=== PATIENT | female | born 1980 | race Caucasian/White ===

== ENCOUNTER 2019-02-24 08:38 | Emergency (ER) | payer MEDICARE, MEDICAID ==
[~2019-02-24] VITALS: Ht 162.6 cm; Wt 97.0 kg
[~2019-02-24 08:38] MED LIST: CELE-193 PO; CYT5T PO; ESOM40CA PO; FLUT16SP26 BOTHNARES; LEVO175T52 PO; LORA-512 PO; VALA100027 PO
[2019-02-24 08:40] VITALS: BP 142/55
[2019-02-24] MEDS ORDERED: ibuprofen tablet 400 MG TABLET PO ONE (10:05)
== END 2019-02-24 10:48 | disposition home or self-care (01) ==
LOC: ER 08:38
DX: S92.511A Displaced fracture of proximal phalanx of right lesser toe(s), initial encounter for closed fracture (principal); E03.9 Hypothyroidism, unspecified; Z88.5 Allergy status to narcotic agent; Z79.899 Other long term (current) drug therapy; Z79.2 Long term (current) use of antibiotics; W22.8XXA Striking against or struck by other objects, initial encounter; Y93.01 Activity, walking, marching and hiking; Y92.89 Other specified places as the place of occurrence of the external cause; Y99.8 Other external cause status
CPT/HCPCS: 73630; 99283

== ENCOUNTER 2019-02-26 17:50 | Emergency (ER) | payer MEDICARE ==
[~2019-02-26] VITALS: Ht 162.6 cm; Wt 95.0 kg
[2019-02-26 17:54] VITALS: BP 147/92
== END 2019-02-26 18:41 | disposition home or self-care (01) ==
LOC: ER 17:51
DX: S92.354A Nondisplaced fracture of fifth metatarsal bone, right foot, initial encounter for closed fracture (principal); E03.9 Hypothyroidism, unspecified; Z88.5 Allergy status to narcotic agent; Z79.899 Other long term (current) drug therapy; X58.XXXA Exposure to other specified factors, initial encounter; Y93.89 Activity, other specified; Y92.89 Other specified places as the place of occurrence of the external cause; Y99.8 Other external cause status
CPT/HCPCS: 29515; 99284

== ENCOUNTER 2019-04-09 09:57 | Outpatient (CLI) | payer MEDICARE, MEDICAID | END 2019-04-09 23:59 | disposition home or self-care (01) | LOC: RAD 09:57 | PROVIDERS: ATTEND Family Medicine | DX: J18.9 Pneumonia, unspecified organism (principal) | CPT/HCPCS: 71046 ==

== ENCOUNTER 2019-05-08 09:59 | Emergency (ER) | payer MEDICARE, MEDICAID ==
[~2019-05-08] VITALS: Ht 162.6 cm; Wt 95.5 kg
[2019-05-08 10:10] VITALS: BP 138/82
[2019-05-08] MEDS ORDERED: ketorolac tromethamine 15mg/ml inj. IM ONE (11:40)
== END 2019-05-08 11:57 | disposition home or self-care (01) ==
LOC: ER 09:59
DX: S69.91XA Unspecified injury of right wrist, hand and finger(s), initial encounter (principal); G43.909 Migraine, unspecified, not intractable, without status migrainosus; E03.9 Hypothyroidism, unspecified; Z88.5 Allergy status to narcotic agent; Z79.899 Other long term (current) drug therapy; W23.0XXA Caught, crushed, jammed, or pinched between moving objects, initial encounter; Y93.89 Activity, other specified; Y92.89 Other specified places as the place of occurrence of the external cause; Y99.8 Other external cause status
CPT/HCPCS: 29125; 73130; 96372; 99283; J1885

== ENCOUNTER 2019-06-17 13:38 | Outpatient (CLI) | payer MEDICARE, MEDICAID | END 2019-06-17 23:59 | disposition home or self-care (01) | LOC: RAD 13:38 | PROVIDERS: ATTEND Family Medicine | DX: K21.9 Gastro-esophageal reflux disease without esophagitis (principal) | CPT/HCPCS: 74230 ==

== ENCOUNTER 2019-10-07 16:38 | Emergency (ER) | payer MEDICARE, MEDICAID ==
[~2019-10-07] VITALS: Ht 162.6 cm; Wt 95.5 kg
[~2019-10-07 16:38] MED LIST changes: -VALA100027 PO; +VALA100031 PO
[2019-10-07] MEDS ORDERED: mag hydrox/Alum hydrox/simeth 30ml oral suspension PO ONE (16:50)
[2019-10-07] MEDS ORDERED: LIDOcaine Viscous 15ml cup MM ONE (16:50)
[2019-10-07] MEDS ORDERED: sucralfate 1 gm tablet PO ONE (16:50)
[2019-10-07 17:07] LABS: BASOPHILS # (AUTO) 0.1 X10'3 (0-0.2); BASOPHILS % (AUTO) 0.8 % (0-1); EOSINOPHILS # (AUTO) 0.2 X10'3 (0-0.9); EOSINOPHILS % (AUTO) 1.8 % (0-6); HEMATOCRIT 39.7 % (35.0-45.0); HEMOGLOBIN 13.8 g/dl (12.0-16.0); LYMPHOCYTES % (AUTO) 34.8 % (21-51); MEAN CORPUSCULAR HEMOGLOBIN 32.4 PG (27.0-31.0); MEAN CORPUSCULAR HGB CONC 34.7 g/dL (33.0-36.5); MEAN CORPUSCULAR VOLUME 93.4 FL (78-98); MEAN PLATELET VOLUME 8.3 FL (7.4-10.4); MONOCYTES # (AUTO) 0.9 X10'3 (0-0.9); MONOCYTES % (AUTO) 7.7 % (2-12); NEUTROPHILS # (AUTO) 6.2 X10'3 (1.8-7.7); NEUTROPHILS % (AUTO) 54.9 % (42-75); PLATELET COUNT 314 X10'3 (140-440); RED BLOOD COUNT 4.25 X10'6 (4.20-5.60); RED CELL DISTRIBUTION WIDTH 12.9 % (11.5-14.5); WHITE BLOOD COUNT 11.4 X10'3 (4.5-11.0)
[2019-10-07 17:21] LABS: ALANINE AMINOTRANSFERASE 23 U/L (12-78); ALBUMIN 3.9 G/DL (3.4-5.0); ALBUMIN/GLOBULIN RATIO 1.1 (1.1-1.5); ALKALINE PHOSPHATASE 90 IU/L (46-116); ANION GAP 11 (8-16); ASPARTATE AMINO TRANSFERASE 14 U/L (10-37); BILIRUBIN,TOTAL 0.2 MG/DL (0.1-1.0); BLOOD UREA NITROGEN 11 MG/DL (7-18); BUN/CREATININE RATIO 13.6 (6.6-38.0); CALCIUM 9.3 MG/DL (8.5-10.1); CHLORIDE 109 MMOL/L (99-107); CREATININE 0.81 MG/DL (0.40-0.90); GLUCOSE 116 MG/DL (70-104); POTASSIUM 3.3 MMOL/L (3.5-5.1); SODIUM 142 MMOL/L (135-145); TOTAL CARBON DIOXIDE 21.9 MMOL/L (24-32); TOTAL PROTEIN 7.5 G/DL (6.4-8.2); eGFR 80 ML/MIN
--- NOTE | 2019-10-07 17:30 | NUR ---
patient said chest pain was resolved
[2019-10-07] MEDS ORDERED: nitroGLYCERIN 0.4mg SUBLingual tab SL PRN (17:40)
--- NOTE | 2019-10-07 18:10 | NUR ---
SPOKE WITH MOISES DUNN REGARDING NTG. BP 132/77 AND NO C/O CHEST PAIN. NTG HELD AT THIS TIME.
[2019-10-07 19:16] VITALS: BP 156/91
--- NOTE | 2019-10-07 19:16 | NUR ---
pt reports frustration that Provider did not think her CP was significant for further work up and that he just thought it was her heartburn. States "It does not feel like heartburn and I am taking my nexium". States Provider did not ask her about family history or her medical history or what medications she is taking, suggesting that Provider was not thorough. also reports he BP's are very low at baseline. "Usually 70 over about 50". I clarified this with her and told her the normal values for BP and that systolic of 70 is dangerously low. She states at times she is 100 our 50's. Pt ok with DC at this time. Mother coming to pick her up.
== END 2019-10-07 19:21 | disposition home or self-care (01) ==
LOC: ER 16:38
DX: I10 Essential (primary) hypertension (principal); R07.89 Other chest pain; E03.9 Hypothyroidism, unspecified; Z88.5 Allergy status to narcotic agent; Z88.8 Allergy status to other drugs, medicaments and biological substances; Z79.899 Other long term (current) drug therapy; Z87.891 Personal history of nicotine dependence
CPT/HCPCS: 36415; 71045; 80053; 83880; 84484; 85025; 93005; 99285

== ENCOUNTER 2019-12-14 15:12 | Emergency (ER) | payer MEDICARE, MEDICAID ==
[~2019-12-14] VITALS: Ht 162.6 cm; Wt 90.9 kg
[2019-12-14 16:19] LABS: BASOPHILS % (AUTO) 0.5 % (0-1); EOSINOPHILS # (AUTO) 0.1 X10'3 (0-0.9); EOSINOPHILS % (AUTO) 1.3 % (0-6); HEMATOCRIT 42.2 % (35.0-45.0); HEMOGLOBIN 14.6 g/dl (12.0-16.0); LYMPHOCYTES % (AUTO) 33.9 % (21-51); MEAN CORPUSCULAR HEMOGLOBIN 32.4 PG (27.0-31.0); MEAN CORPUSCULAR HGB CONC 34.6 g/dL (33.0-36.5); MEAN CORPUSCULAR VOLUME 93.7 FL (78-98); MONOCYTES # (AUTO) 0.6 X10'3 (0-0.9); MONOCYTES % (AUTO) 7.4 % (2-12); NEUTROPHILS % (AUTO) 56.9 % (42-75); PLATELET COUNT 345 X10'3 (140-440); RED CELL DISTRIBUTION WIDTH 12.5 % (11.5-14.5); WHITE BLOOD COUNT 8.8 X10'3 (4.5-11.0)
[2019-12-14 16:32] LABS: ALANINE AMINOTRANSFERASE 28 U/L (12-78); ALBUMIN 4.3 G/DL (3.4-5.0); ALBUMIN/GLOBULIN RATIO 1.1 (1.1-1.5); ALKALINE PHOSPHATASE 89 IU/L (46-116); ANION GAP 8 (8-16); ASPARTATE AMINO TRANSFERASE 16 U/L (10-37); BILIRUBIN,TOTAL 0.3 MG/DL (0.1-1.0); BLOOD UREA NITROGEN 11 MG/DL (7-18); BUN/CREATININE RATIO 12.9 (6.6-38.0); CALCIUM 9.5 MG/DL (8.5-10.1); CHLORIDE 107 MMOL/L (99-107); CREATININE 0.85 MG/DL (0.40-0.90); GLUCOSE 114 MG/DL (70-104); POTASSIUM 3.4 MMOL/L (3.5-5.1); SODIUM 139 MMOL/L (135-145); TOTAL CARBON DIOXIDE 23.8 MMOL/L (24-32); TOTAL PROTEIN 8.2 G/DL (6.4-8.2); eGFR 75 ML/MIN
--- NOTE | 2019-12-14 17:10 | NUR ---
PT'S SON, SOFI GILBERT; HAS BEEN CAUSING DIFFICULTIES WANTING TO STAY WITH HIS MOTHER DUE TO HER HAVING SHORT TERM MEMORY LOSS SECONDARY TO A TBI PER PT. IT WAS EXPLAINED TO THE SON THAT THE HOSPITAL HAS A NO VISITOR POLICY WITH THE EXCEPTION TO END OF LIFE, HOWEVER HE WAS ALLOWED IN WITH HIS MOTHER LONG ENOUGH TO HELP WITH NEEDED INFORMATION DURING PROVIDER ASSESSMENT/EXAMINATION. PER OTHER STAFF MEMBERS, PT WAS ABLE TO ANSWER QUESTIONS APPROPRIATELY. PT'S SON DID STATE THAT HE HAD TO CORRECT SOME OF HIS MOTHERS ANSWERS. AFTER PROVIDER EVALUATED THE PT, SON WAS ASKED TO LEAVE THE ER AND WAIT OUTSIDE AND THAT WE WOULD CALL HIM FOR ANY ADDITIONAL INFORMATION OR CLEARIFICATION. SON FELT HE SHOULD BE ALLOWED TO STAY DUE TO THE ADA. AGAIN THE NO VISITOR POLICY WAS EXPLAINED AND THAT WE WOULD CALL HIM SHOULD ADDITIONAL INFORMATION WAS NEEDED. SON REQUESTED TO SPEAK "TO A HIGHER UP, THE NURSING COUNTER SERVER." KAR, KAI WAS CALLED AND ASKED TO SPEAK WITH MR GILBERT. BOTH MYSELF AND NS SPOKE WITH MR GILBERT OUTSIDE AND TRIED TO REASSURE HIM THAT HIS MOTHER WAS BEING WELL CARED FOR BUT THE POLICY IS STRICT AND THAT THERE ARE ABSOLUTLY NO VISITORS EXCEPT FOR END OF LIFE. MR GILBERT THEN INSISTED THAT HE "SPEAK TO A HIGHER UP". NS STATES THAT HE WOULD THEN HAVE TO WAIT UNTIL TOMORROW AFTER 0800 DUE TO UPPER MANAGEMENT HAS GONE HOME FOR THE DAY. MR GILBERT STATED THAT HE WOULD BE MAKING A CALL TO "[employer]PPER [employer]NA[employer]EMENT TOMORROW MORNING. MR GILBERT WAS ASKED FOR HIS PHONE # SO THAT WE MAY CONTACT HIM IF NEEDED:
[2019-12-14 17:19] LABS: D-DIMER < 0.19 MG/L FEU (0-0.50)
[2019-12-14 18:04] VITALS: BP 128/95
== END 2019-12-14 18:06 | disposition home or self-care (01) ==
LOC: ER 15:13
DX: R00.0 Tachycardia, unspecified (principal); E03.9 Hypothyroidism, unspecified; R07.89 Other chest pain; R51 Headache; Z72.89 Other problems related to lifestyle; Z88.5 Allergy status to narcotic agent; Z79.899 Other long term (current) drug therapy
CPT/HCPCS: 36415; 71045; 80053; 84484; 85025; 85379; 93005; 99285

== ENCOUNTER 2022-03-20 10:44 | Emergency (ER) | payer MEDICARE, MEDICAID ==
[~2022-03-20] VITALS: Ht 162.6 cm; Wt 90.0 kg
[2022-03-20 10:53] VITALS: BP 160/99
[2022-03-20] MEDS ORDERED: HYDROcodone/acetaminophen 5mg/325mg tablet PO ONE (12:35)
[2022-03-20] MEDS ORDERED: gabapentin 400mg capsule PO ONE (12:39)
[2022-03-20] MEDS ORDERED: HYDR-3965 PO (13:01)
== END 2022-03-20 13:38 | disposition home or self-care (01) ==
LOC: ER 10:46
DX: M54.50 Low back pain, unspecified (principal); I50.9 Heart failure, unspecified; K21.9 Gastro-esophageal reflux disease without esophagitis; E03.9 Hypothyroidism, unspecified; M19.90 Unspecified osteoarthritis, unspecified site; F41.9 Anxiety disorder, unspecified; Z88.5 Allergy status to narcotic agent; Z88.8 Allergy status to other drugs, medicaments and biological substances
CPT/HCPCS: 99283